=== PATIENT | female | born 1955 | race Caucasian/White ===

== ENCOUNTER → 2017-08-19 | Outpatient (CLI) | payer OTHER ==
[~2017-08-19] VITALS: Ht 167.6 cm; Wt 158.3 kg
[~2017-08-19] MED LIST: REGADENOSON 0.4 MG/5 ML PF SYG IVP SCH
== END | disposition home or self-care (01) ==
LOC: SHCH 08:13
PROVIDERS: ATTEND Internal Medicine Cardiovascular Disease
DX: I25.10 Atherosclerotic heart disease of native coronary artery without angina pectoris (principal)
CPT/HCPCS: 78452; 93017; 96374; A9500 ×2; J2785

== ENCOUNTER → 2020-05-02 | Outpatient (CLI) | payer OTHER | END | disposition home or self-care (01) | LOC: RAH 14:20 | PROVIDERS: ATTEND Physical Medicine & Rehabilitation | DX: M47.816 Spondylosis without myelopathy or radiculopathy, lumbar region (principal); M48.062 Spinal stenosis, lumbar region with neurogenic claudication | CPT/HCPCS: 72110 ==

== ENCOUNTER → 2020-06-23 | Outpatient (CLI) | payer OTHER | END | disposition home or self-care (01) | LOC: RAH 09:53 | PROVIDERS: ATTEND Physical Medicine & Rehabilitation | DX: M25.551 Pain in right hip (principal); M24.851 Other specific joint derangements of right hip, not elsewhere classified | CPT/HCPCS: 73502 ==

== ENCOUNTER 2020-08-10 15:48 | Emergency (ER) | payer OTHER ==
[~2020-08-10] VITALS: Ht 167.6 cm; Wt 162.8 kg
[2020-08-10 15:51] VITALS: BP 124/76
[2020-08-10] MEDS ORDERED: ZOSYN 3.375GM+NS 50ML 50 ML IV STA (16:10)
[2020-08-10] MEDS ORDERED: CLINDAMYCIN IVPB 600MG/50ML 50 ML IV STA (16:12)
[2020-08-10 18:02] LABS: BASOPHILS % (AUTO) 0.6 % (0.0-5.0); EOSINOPHILS % (AUTO) 2.1 % (0.0-8.0); MEAN CORPUSCULAR HEMOGLOBIN 30.1 pg (27.0-33.0); MEAN CORPUSCULAR HGB CONC 30.5 g/dL (32.0-36.0); MEAN CORPUSCULAR VOLUME 98.8 fL (79-99); MONOCYTES % (AUTO) 6.8 % (3.0-13.0); NEUTROPHILS % (AUTO) 66.3 % (40.0-77.0); PLATELET COUNT (AUTO) 331 K/uL (130-400); RED BLOOD CELL COUNT(AUTO) 4.25 MIL/uL (4.00-5.50); WHITE BLOOD COUNT (AUTO) 10.4 K/uL (4.8-10.8)
[2020-08-10 18:18] LABS: INR 1.06 (0.85-1.15); PROTHROMBIN TIME 11.5 SEC (9.6-11.6)
[2020-08-10 18:19] LABS: PARTIAL THROMBOPLASTIN TIME 27.5 SEC (26.3-35.5)
[2020-08-10] MEDS ORDERED: CLINDAMYCIN IVPB 600MG/50ML 50 ML IV ONE (18:20)
[2020-08-10] MEDS ORDERED: ZOSYN 3.375GM+NS 50ML 50 ML IV ONE (18:20)
[2020-08-10] MEDS ORDERED: 0.9% NACL 50ML 50 ML IV ONE (18:21)
[2020-08-10 18:22] LABS: CREATININE 1.4 mg/dL (0.5-1.5); POTASSIUM 4.5 mmol/L (3.5-5.1)
[2020-08-10 18:27] LABS: ALBUMIN 2.9 g/dL (3.5-5.0); BILIRUBIN,TOTAL 0.4 mg/dL (0.2-1.0); TOTAL PROTEIN, SERUM 8.3 g/dL (6.0-8.3); URIC ACID 10.5 mg/dL (2.6-7.2)
[2020-08-10] MEDS ORDERED: CLIN300C10 PO (18:53)
[2020-08-10 18:56] VITALS: BP 135/76
[2020-08-10 19:05] LABS: ERYTHROCYTE SEDIMENTATION RATE 90 MM/HR (0-30)
== END 2020-08-10 19:45 | disposition home or self-care (01) ==
LOC: EDH 15:48
DX: L03.115 Cellulitis of right lower limb (principal); E66.9 Obesity, unspecified; Z79.899 Other long term (current) drug therapy
CPT/HCPCS: 36415; 80053; 83605; 84550; 85025; 85610; 85651; 85730; 87040 ×2; 93971; 96365; 96367; 99284; J2543; J3490

== ENCOUNTER → 2020-08-14 | Outpatient (CLI) | payer OTHER ==
[~2020-08-14] MED LIST changes: +CLIN300C10 PO; +LIDOCAINE HCL 4% LTA SOL 4 ML VIAL TP ONE; -REGADENOSON 0.4 MG/5 ML PF SYG IVP SCH
== END | disposition home or self-care (01) ==
LOC: WHH 08:21
PROVIDERS: ATTEND Family Medicine
DX: I87.311 Chronic venous hypertension (idiopathic) with ulcer of right lower extremity (principal); E11.622 Type 2 diabetes mellitus with other skin ulcer; L97.812 Non-pressure chronic ulcer of other part of right lower leg with fat layer exposed; L97.212 Non-pressure chronic ulcer of right calf with fat layer exposed; I89.0 Lymphedema, not elsewhere classified; I10 Essential (primary) hypertension; E66.9 Obesity, unspecified; E78.5 Hyperlipidemia, unspecified; E03.9 Hypothyroidism, unspecified; G47.30 Sleep apnea, unspecified; I87.2 Venous insufficiency (chronic) (peripheral); E66.01 Morbid (severe) obesity due to excess calories; M10.9 Gout, unspecified; M48.00 Spinal stenosis, site unspecified; Z68.43 Body mass index [BMI] 50.0-59.9, adult
CPT/HCPCS: 99215; A4450; A6021; A6197

== ENCOUNTER → 2020-08-16 | Outpatient (CLI) | payer OTHER ==
[~2020-08-16] MED LIST changes: -LIDOCAINE HCL 4% LTA SOL 4 ML VIAL TP ONE
== END | disposition home or self-care (01) ==
LOC: WHH 11:19
PROVIDERS: ATTEND Family Medicine
DX: I87.311 Chronic venous hypertension (idiopathic) with ulcer of right lower extremity (principal); E11.622 Type 2 diabetes mellitus with other skin ulcer; L97.812 Non-pressure chronic ulcer of other part of right lower leg with fat layer exposed; L97.212 Non-pressure chronic ulcer of right calf with fat layer exposed; I89.0 Lymphedema, not elsewhere classified; I10 Essential (primary) hypertension; E66.9 Obesity, unspecified; E78.5 Hyperlipidemia, unspecified; E03.9 Hypothyroidism, unspecified; G47.30 Sleep apnea, unspecified; I87.2 Venous insufficiency (chronic) (peripheral); E66.01 Morbid (severe) obesity due to excess calories; M10.9 Gout, unspecified; Z68.43 Body mass index [BMI] 50.0-59.9, adult
CPT/HCPCS: 99211; A6021; A6197

== ENCOUNTER → 2020-08-18 | Outpatient (CLI) | payer OTHER | END | disposition home or self-care (01) | LOC: WHH 08:08 | PROVIDERS: ATTEND Family Medicine | DX: I87.311 Chronic venous hypertension (idiopathic) with ulcer of right lower extremity (principal); E11.622 Type 2 diabetes mellitus with other skin ulcer; L97.812 Non-pressure chronic ulcer of other part of right lower leg with fat layer exposed; L97.212 Non-pressure chronic ulcer of right calf with fat layer exposed; I89.0 Lymphedema, not elsewhere classified; I10 Essential (primary) hypertension; E66.9 Obesity, unspecified; E78.5 Hyperlipidemia, unspecified; E03.9 Hypothyroidism, unspecified; G47.30 Sleep apnea, unspecified; I87.2 Venous insufficiency (chronic) (peripheral); E66.01 Morbid (severe) obesity due to excess calories; M10.9 Gout, unspecified; Z68.43 Body mass index [BMI] 50.0-59.9, adult | CPT/HCPCS: 29580; 99211; A6021; A6197; A6456 ==

== ENCOUNTER → 2020-08-21 | Outpatient (CLI) | payer OTHER ==
[~2020-08-21] MED LIST changes: +LIDOCAINE HCL 4% LTA SOL 4 ML VIAL TP ONE
== END | disposition home or self-care (01) ==
LOC: WHH 08:09
PROVIDERS: ATTEND Family Medicine
DX: I87.311 Chronic venous hypertension (idiopathic) with ulcer of right lower extremity (principal); E11.622 Type 2 diabetes mellitus with other skin ulcer; L97.812 Non-pressure chronic ulcer of other part of right lower leg with fat layer exposed; L97.212 Non-pressure chronic ulcer of right calf with fat layer exposed; I89.0 Lymphedema, not elsewhere classified; I10 Essential (primary) hypertension; E66.9 Obesity, unspecified; E78.5 Hyperlipidemia, unspecified; E03.9 Hypothyroidism, unspecified; G47.30 Sleep apnea, unspecified; I87.2 Venous insufficiency (chronic) (peripheral); E66.01 Morbid (severe) obesity due to excess calories; M10.9 Gout, unspecified; Z68.43 Body mass index [BMI] 50.0-59.9, adult
CPT/HCPCS: 11042; A6021; A6197; A6456

== ENCOUNTER → 2020-08-23 | Outpatient (CLI) | payer OTHER ==
[~2020-08-23] MED LIST changes: -LIDOCAINE HCL 4% LTA SOL 4 ML VIAL TP ONE
== END | disposition home or self-care (01) ==
LOC: WHH 11:13
PROVIDERS: ATTEND Family Medicine
DX: I87.311 Chronic venous hypertension (idiopathic) with ulcer of right lower extremity (principal); E11.622 Type 2 diabetes mellitus with other skin ulcer; L97.812 Non-pressure chronic ulcer of other part of right lower leg with fat layer exposed; L97.212 Non-pressure chronic ulcer of right calf with fat layer exposed; I89.0 Lymphedema, not elsewhere classified; I10 Essential (primary) hypertension; E66.9 Obesity, unspecified; E78.5 Hyperlipidemia, unspecified; E03.9 Hypothyroidism, unspecified; G47.30 Sleep apnea, unspecified; I87.2 Venous insufficiency (chronic) (peripheral); E66.01 Morbid (severe) obesity due to excess calories; M10.9 Gout, unspecified; Z68.43 Body mass index [BMI] 50.0-59.9, adult
CPT/HCPCS: 29580; 99211; A6021; A6197; A6456

== ENCOUNTER → 2020-08-25 | Outpatient (CLI) | payer OTHER | END | disposition home or self-care (01) | LOC: WHH 08:12 | PROVIDERS: ATTEND Family Medicine | DX: I87.311 Chronic venous hypertension (idiopathic) with ulcer of right lower extremity (principal); E11.622 Type 2 diabetes mellitus with other skin ulcer; L97.812 Non-pressure chronic ulcer of other part of right lower leg with fat layer exposed; L97.212 Non-pressure chronic ulcer of right calf with fat layer exposed; I89.0 Lymphedema, not elsewhere classified; I10 Essential (primary) hypertension; E66.9 Obesity, unspecified; E78.5 Hyperlipidemia, unspecified; E03.9 Hypothyroidism, unspecified; G47.30 Sleep apnea, unspecified; I87.2 Venous insufficiency (chronic) (peripheral); E66.01 Morbid (severe) obesity due to excess calories; M10.9 Gout, unspecified; Z68.43 Body mass index [BMI] 50.0-59.9, adult | CPT/HCPCS: 99211; A6021; A6197 ==

== ENCOUNTER → 2020-08-29 | Outpatient (CLI) | payer MEDICARE, OTHER ==
[~2020-08-29] MED LIST changes: +LIDOCAINE HCL 4% LTA SOL 4 ML VIAL TP ONE
== END | disposition home or self-care (01) ==
LOC: WHH 08:06
PROVIDERS: ATTEND Family Medicine
DX: I87.311 Chronic venous hypertension (idiopathic) with ulcer of right lower extremity (principal); E11.622 Type 2 diabetes mellitus with other skin ulcer; L97.812 Non-pressure chronic ulcer of other part of right lower leg with fat layer exposed; L97.512 Non-pressure chronic ulcer of other part of right foot with fat layer exposed; L97.212 Non-pressure chronic ulcer of right calf with fat layer exposed; I89.0 Lymphedema, not elsewhere classified; I10 Essential (primary) hypertension; E66.9 Obesity, unspecified; E78.5 Hyperlipidemia, unspecified; E03.9 Hypothyroidism, unspecified; G47.30 Sleep apnea, unspecified; I87.2 Venous insufficiency (chronic) (peripheral); E66.01 Morbid (severe) obesity due to excess calories; M10.9 Gout, unspecified; Z68.43 Body mass index [BMI] 50.0-59.9, adult
CPT/HCPCS: 11042; A6021; A6197

== ENCOUNTER → 2020-09-01 | Outpatient (CLI) | payer MEDICARE, OTHER ==
[~2020-09-01] MED LIST changes: -LIDOCAINE HCL 4% LTA SOL 4 ML VIAL TP ONE
== END | disposition home or self-care (01) ==
LOC: WHH 08:14
PROVIDERS: ATTEND Family Medicine
DX: I87.311 Chronic venous hypertension (idiopathic) with ulcer of right lower extremity (principal); E11.622 Type 2 diabetes mellitus with other skin ulcer; L97.812 Non-pressure chronic ulcer of other part of right lower leg with fat layer exposed; L97.212 Non-pressure chronic ulcer of right calf with fat layer exposed; E11.621 Type 2 diabetes mellitus with foot ulcer; L97.512 Non-pressure chronic ulcer of other part of right foot with fat layer exposed; I89.0 Lymphedema, not elsewhere classified; I10 Essential (primary) hypertension; E66.9 Obesity, unspecified; E78.5 Hyperlipidemia, unspecified; E03.9 Hypothyroidism, unspecified; G47.30 Sleep apnea, unspecified; I87.2 Venous insufficiency (chronic) (peripheral); E66.01 Morbid (severe) obesity due to excess calories; M10.9 Gout, unspecified; Z68.43 Body mass index [BMI] 50.0-59.9, adult
CPT/HCPCS: 99211; A6021; A6197

== ENCOUNTER → 2020-09-04 | Outpatient (CLI) | payer MEDICARE, OTHER ==
[~2020-09-04] MED LIST changes: +LIDOCAINE HCL 4% LTA SOL 4 ML VIAL TP ONE
== END | disposition home or self-care (01) ==
LOC: WHH 08:11
PROVIDERS: ATTEND Family Medicine
DX: I87.311 Chronic venous hypertension (idiopathic) with ulcer of right lower extremity (principal); E11.622 Type 2 diabetes mellitus with other skin ulcer; L97.812 Non-pressure chronic ulcer of other part of right lower leg with fat layer exposed; L97.212 Non-pressure chronic ulcer of right calf with fat layer exposed; E11.621 Type 2 diabetes mellitus with foot ulcer; L97.518 Non-pressure chronic ulcer of other part of right foot with other specified severity; I89.0 Lymphedema, not elsewhere classified; I10 Essential (primary) hypertension; E66.9 Obesity, unspecified; E78.5 Hyperlipidemia, unspecified; E03.9 Hypothyroidism, unspecified; G47.30 Sleep apnea, unspecified; I87.2 Venous insufficiency (chronic) (peripheral); E66.01 Morbid (severe) obesity due to excess calories; M10.9 Gout, unspecified; Z68.43 Body mass index [BMI] 50.0-59.9, adult
CPT/HCPCS: 11042; A6021; A6197

== ENCOUNTER → 2020-09-08 | Outpatient (CLI) | payer OTHER ==
[~2020-09-08] MED LIST changes: -LIDOCAINE HCL 4% LTA SOL 4 ML VIAL TP ONE
== END | disposition home or self-care (01) ==
LOC: WHH 09:06
PROVIDERS: ATTEND Family Medicine
DX: I87.311 Chronic venous hypertension (idiopathic) with ulcer of right lower extremity (principal); E11.622 Type 2 diabetes mellitus with other skin ulcer; L97.812 Non-pressure chronic ulcer of other part of right lower leg with fat layer exposed; L97.212 Non-pressure chronic ulcer of right calf with fat layer exposed; I89.0 Lymphedema, not elsewhere classified; I10 Essential (primary) hypertension; E66.9 Obesity, unspecified; E78.5 Hyperlipidemia, unspecified; E03.9 Hypothyroidism, unspecified; G47.30 Sleep apnea, unspecified; I87.2 Venous insufficiency (chronic) (peripheral); E66.01 Morbid (severe) obesity due to excess calories; M10.9 Gout, unspecified; Z68.43 Body mass index [BMI] 50.0-59.9, adult
CPT/HCPCS: 99211; A6021; A6197

== ENCOUNTER → 2020-09-11 | Outpatient (CLI) | payer OTHER ==
[~2020-09-11] MED LIST changes: +LIDOCAINE HCL 4% LTA SOL 4 ML VIAL TP ONE
== END | disposition home or self-care (01) ==
LOC: WHH 08:16
PROVIDERS: ATTEND Family Medicine
DX: I87.311 Chronic venous hypertension (idiopathic) with ulcer of right lower extremity (principal); E11.622 Type 2 diabetes mellitus with other skin ulcer; L97.812 Non-pressure chronic ulcer of other part of right lower leg with fat layer exposed; L97.212 Non-pressure chronic ulcer of right calf with fat layer exposed; I89.0 Lymphedema, not elsewhere classified; I10 Essential (primary) hypertension; E66.9 Obesity, unspecified; E78.5 Hyperlipidemia, unspecified; E03.9 Hypothyroidism, unspecified; G47.30 Sleep apnea, unspecified; I87.2 Venous insufficiency (chronic) (peripheral); E66.01 Morbid (severe) obesity due to excess calories; M10.9 Gout, unspecified; Z68.43 Body mass index [BMI] 50.0-59.9, adult
CPT/HCPCS: 11042; A6021; A6197

== ENCOUNTER → 2020-09-14 | Outpatient (CLI) | payer OTHER ==
[~2020-09-14] MED LIST changes: -LIDOCAINE HCL 4% LTA SOL 4 ML VIAL TP ONE
== END | disposition home or self-care (01) ==
LOC: WHH 11:11
PROVIDERS: ATTEND Family Medicine
DX: I87.311 Chronic venous hypertension (idiopathic) with ulcer of right lower extremity (principal); E11.622 Type 2 diabetes mellitus with other skin ulcer; L97.812 Non-pressure chronic ulcer of other part of right lower leg with fat layer exposed; L97.212 Non-pressure chronic ulcer of right calf with fat layer exposed; I89.0 Lymphedema, not elsewhere classified; I10 Essential (primary) hypertension; E66.9 Obesity, unspecified; E78.5 Hyperlipidemia, unspecified; E03.9 Hypothyroidism, unspecified; G47.30 Sleep apnea, unspecified; I87.2 Venous insufficiency (chronic) (peripheral); E66.01 Morbid (severe) obesity due to excess calories; M10.9 Gout, unspecified; Z68.43 Body mass index [BMI] 50.0-59.9, adult
CPT/HCPCS: 99211; A4450; A6021; A6197

== ENCOUNTER → 2020-09-18 | Outpatient (CLI) | payer OTHER ==
[~2020-09-18] MED LIST changes: +LIDOCAINE HCL 4% LTA SOL 4 ML VIAL TP ONE
== END | disposition home or self-care (01) ==
LOC: WHH 08:08
PROVIDERS: ATTEND Family Medicine
DX: I87.311 Chronic venous hypertension (idiopathic) with ulcer of right lower extremity (principal); E11.622 Type 2 diabetes mellitus with other skin ulcer; L97.812 Non-pressure chronic ulcer of other part of right lower leg with fat layer exposed; L97.212 Non-pressure chronic ulcer of right calf with fat layer exposed; I89.0 Lymphedema, not elsewhere classified; I10 Essential (primary) hypertension; E66.9 Obesity, unspecified; E78.5 Hyperlipidemia, unspecified; E03.9 Hypothyroidism, unspecified; G47.30 Sleep apnea, unspecified; I87.2 Venous insufficiency (chronic) (peripheral); E66.01 Morbid (severe) obesity due to excess calories; M10.9 Gout, unspecified; Z68.43 Body mass index [BMI] 50.0-59.9, adult
CPT/HCPCS: 99214

== ENCOUNTER → 2020-09-25 | Outpatient (CLI) | payer OTHER ==
[~2020-09-25] MED LIST changes: -LIDOCAINE HCL 4% LTA SOL 4 ML VIAL TP ONE
== END | disposition home or self-care (01) ==
LOC: WHH 08:09
PROVIDERS: ATTEND Family Medicine
DX: I87.311 Chronic venous hypertension (idiopathic) with ulcer of right lower extremity (principal); E11.622 Type 2 diabetes mellitus with other skin ulcer; L97.812 Non-pressure chronic ulcer of other part of right lower leg with fat layer exposed; L97.212 Non-pressure chronic ulcer of right calf with fat layer exposed; I89.0 Lymphedema, not elsewhere classified; I10 Essential (primary) hypertension; E66.9 Obesity, unspecified; E78.5 Hyperlipidemia, unspecified; E03.9 Hypothyroidism, unspecified; G47.30 Sleep apnea, unspecified; I87.2 Venous insufficiency (chronic) (peripheral); E66.01 Morbid (severe) obesity due to excess calories; M10.9 Gout, unspecified; Z68.43 Body mass index [BMI] 50.0-59.9, adult
CPT/HCPCS: 99214

== ENCOUNTER → 2020-10-02 | Outpatient (CLI) | payer OTHER | END | disposition home or self-care (01) | LOC: WHH 08:08 | PROVIDERS: ATTEND Family Medicine | DX: I87.311 Chronic venous hypertension (idiopathic) with ulcer of right lower extremity (principal); E11.622 Type 2 diabetes mellitus with other skin ulcer; L97.812 Non-pressure chronic ulcer of other part of right lower leg with fat layer exposed; L97.212 Non-pressure chronic ulcer of right calf with fat layer exposed; I89.0 Lymphedema, not elsewhere classified; I10 Essential (primary) hypertension; E66.9 Obesity, unspecified; E78.5 Hyperlipidemia, unspecified; E03.9 Hypothyroidism, unspecified; G47.30 Sleep apnea, unspecified; I87.2 Venous insufficiency (chronic) (peripheral); E66.01 Morbid (severe) obesity due to excess calories; M10.9 Gout, unspecified; Z68.43 Body mass index [BMI] 50.0-59.9, adult | CPT/HCPCS: 11042; A6021; A6197 ==

== ENCOUNTER → 2020-10-09 | Outpatient (CLI) | payer MEDICARE, OTHER ==
[~2020-10-09] MED LIST changes: +LIDOCAINE HCL 4% LTA SOL 4 ML VIAL TP ONE
== END | disposition home or self-care (01) ==
LOC: WHH 08:40
PROVIDERS: ATTEND Family Medicine
DX: I87.311 Chronic venous hypertension (idiopathic) with ulcer of right lower extremity (principal); E11.622 Type 2 diabetes mellitus with other skin ulcer; L97.812 Non-pressure chronic ulcer of other part of right lower leg with fat layer exposed; L97.212 Non-pressure chronic ulcer of right calf with fat layer exposed; I89.0 Lymphedema, not elsewhere classified; I10 Essential (primary) hypertension; E66.9 Obesity, unspecified; E78.5 Hyperlipidemia, unspecified; E03.9 Hypothyroidism, unspecified; G47.30 Sleep apnea, unspecified; I87.2 Venous insufficiency (chronic) (peripheral); E66.01 Morbid (severe) obesity due to excess calories; M10.9 Gout, unspecified; Z68.43 Body mass index [BMI] 50.0-59.9, adult
CPT/HCPCS: 99214; A6021; A6196

== ENCOUNTER 2020-10-16 08:02 | Outpatient (CLI) | payer OTHER ==
[~2020-10-16 08:02] MED LIST changes: -LIDOCAINE HCL 4% LTA SOL 4 ML VIAL TP ONE
== END 2020-10-16 14:05 | disposition home or self-care (01) ==
LOC: WHH 08:02
PROVIDERS: ATTEND Family Medicine
DX: I87.311 Chronic venous hypertension (idiopathic) with ulcer of right lower extremity (principal); E11.622 Type 2 diabetes mellitus with other skin ulcer; L97.812 Non-pressure chronic ulcer of other part of right lower leg with fat layer exposed; L97.212 Non-pressure chronic ulcer of right calf with fat layer exposed; I89.0 Lymphedema, not elsewhere classified; I10 Essential (primary) hypertension; E66.9 Obesity, unspecified; E78.5 Hyperlipidemia, unspecified; E03.9 Hypothyroidism, unspecified; G47.30 Sleep apnea, unspecified; I87.2 Venous insufficiency (chronic) (peripheral); E66.01 Morbid (severe) obesity due to excess calories; M10.9 Gout, unspecified; Z68.43 Body mass index [BMI] 50.0-59.9, adult
CPT/HCPCS: 99214

== ENCOUNTER 2020-10-29 10:47 | Emergency (ER) | payer OTHER ==
[~2020-10-29] VITALS: Ht 167.6 cm; Wt 158.8 kg
[2020-10-29 11:07] VITALS: BP 126/75
[2020-10-29 11:32] LABS: BASOPHILS % (AUTO) 0.5 % (0.0-5.0); EOSINOPHILS % (AUTO) 1.8 % (0.0-8.0); HEMATOCRIT 40.5 % (36-48); LYMPHOCYTES % (AUTO) 11.3 % (21.0-51.0); MEAN CORPUSCULAR HEMOGLOBIN 29.9 pg (27.0-33.0); MEAN CORPUSCULAR HGB CONC 30.9 g/dL (32.0-36.0); MEAN CORPUSCULAR VOLUME 96.9 fL (79-99); MONOCYTES % (AUTO) 5.5 % (3.0-13.0); NEUTROPHILS % (AUTO) 80.2 % (40.0-77.0); PLATELET COUNT (AUTO) 204 K/uL (130-400); RED BLOOD CELL COUNT(AUTO) 4.18 MIL/uL (4.00-5.50); RED CELL DISTRIBUTION WIDTH 13.8 % (11.0-15.5); WHITE BLOOD COUNT (AUTO) 10.5 K/uL (4.8-10.8)
[2020-10-29 11:39] LABS: CREATININE 1.4 mg/dL (0.5-1.5); POTASSIUM 4.4 mmol/L (3.5-5.1)
[2020-10-29 11:44] LABS: ALBUMIN 3.2 g/dL (3.5-5.0); BILIRUBIN,TOTAL 0.4 mg/dL (0.2-1.0); TOTAL PROTEIN, SERUM 8.3 g/dL (6.0-8.3); URIC ACID 9.4 mg/dL (2.6-7.2)
[2020-10-29 11:57] VITALS: BP 134/75
[2020-10-29] MEDS ORDERED: CLINDAMYCIN IVPB 600MG/50ML 50 ML IV SCH (12:30)
[2020-10-29] MEDS ORDERED: CEFTRIAXONE 1G VIAL IVP ONE (12:30)
[2020-10-29] MEDS ORDERED: CEFTRIAXONE 1G VIAL ONE (13:53)
[2020-10-29] MEDS ORDERED: CLIN300C10 PO (15:09)
[2020-10-29] MEDS ORDERED: NAPR-1180 PO (15:09)
[2020-10-29 15:27] VITALS: BP 133/72
== END 2020-10-29 15:53 | disposition home or self-care (01) ==
LOC: EDH 10:47
DX: L03.115 Cellulitis of right lower limb (principal); E11.65 Type 2 diabetes mellitus with hyperglycemia
CPT/HCPCS: 36415; 73600; 80053; 83605; 84550; 85025; 96365; 96366; 96375; 99284; J0696; J3490

== ENCOUNTER → 2020-12-11 | Outpatient (CLI) | payer OTHER ==
[~2020-12-11] MED LIST changes: +CLIN-141 PO; -CLIN300C10 PO; +NAPR-1180 PO
== END | disposition home or self-care (01) ==
LOC: SHCH 09:46
PROVIDERS: ATTEND Internal Medicine Cardiovascular Disease
DX: I87.2 Venous insufficiency (chronic) (peripheral) (principal)
CPT/HCPCS: 93971

== ENCOUNTER → 2021-10-10 | Outpatient (CLI) | payer OTHER | END | disposition home or self-care (01) | LOC: RAH 09:09 | PROVIDERS: ATTEND Physician Assistant | DX: M25.551 Pain in right hip (principal); M16.0 Bilateral primary osteoarthritis of hip; M16.11 Unilateral primary osteoarthritis, right hip; M25.852 Other specified joint disorders, left hip; M25.851 Other specified joint disorders, right hip | CPT/HCPCS: 73522 ==

== ENCOUNTER → 2023-09-03 | Outpatient (CLI) | payer BC | END | disposition home or self-care (01) | LOC: RAH 10:42 | PROVIDERS: ATTEND Pain Medicine Interventional Pain Medicine | DX: M47.26 Other spondylosis with radiculopathy, lumbar region (principal); M48.07 Spinal stenosis, lumbosacral region | CPT/HCPCS: 72100 ==

== ENCOUNTER → 2023-11-14 | Outpatient (CLI) | payer BC | END | disposition home or self-care (01) | LOC: RAH 10:06 | PROVIDERS: ATTEND Pain Medicine Interventional Pain Medicine | DX: M16.11 Unilateral primary osteoarthritis, right hip (principal); M25.551 Pain in right hip; M25.552 Pain in left hip | CPT/HCPCS: 73521 ==

== ENCOUNTER → 2023-12-18 | Outpatient (CLI) | payer BC | END | disposition home or self-care (01) | LOC: WHH 09:03 | PROVIDERS: ATTEND Family Medicine | DX: S81.801A Unspecified open wound, right lower leg, initial encounter (principal); I89.0 Lymphedema, not elsewhere classified; I10 Essential (primary) hypertension; E78.5 Hyperlipidemia, unspecified; E66.01 Morbid (severe) obesity due to excess calories; M48.00 Spinal stenosis, site unspecified; Z68.43 Body mass index [BMI] 50.0-59.9, adult; W22.8XXA Striking against or struck by other objects, initial encounter; Y93.89 Activity, other specified; Y92.89 Other specified places as the place of occurrence of the external cause; Y99.8 Other external cause status | CPT/HCPCS: 99214; A6212 ==

== ENCOUNTER → 2023-12-25 | Outpatient (CLI) | payer BC ==
[~2023-12-25] MED LIST changes: +LIDOCAINE HCL 4% LTA SOL 4 ML VIAL TP ONE
== END | disposition home or self-care (01) ==
LOC: WHH 08:25
PROVIDERS: ATTEND Family Medicine
DX: S81.801D Unspecified open wound, right lower leg, subsequent encounter (principal); I89.0 Lymphedema, not elsewhere classified; I10 Essential (primary) hypertension; E78.5 Hyperlipidemia, unspecified; E66.01 Morbid (severe) obesity due to excess calories; M48.00 Spinal stenosis, site unspecified; M10.9 Gout, unspecified; Z68.43 Body mass index [BMI] 50.0-59.9, adult; W22.8XXD Striking against or struck by other objects, subsequent encounter
CPT/HCPCS: 99214; A6212

== ENCOUNTER → 2024-01-08 | Outpatient (CLI) | payer BC | END | disposition home or self-care (01) | LOC: WHH 08:23 | PROVIDERS: ATTEND Family Medicine | DX: S81.801D Unspecified open wound, right lower leg, subsequent encounter (principal); I89.0 Lymphedema, not elsewhere classified; I10 Essential (primary) hypertension; E66.01 Morbid (severe) obesity due to excess calories; E78.5 Hyperlipidemia, unspecified; M48.00 Spinal stenosis, site unspecified; M10.9 Gout, unspecified; M16.11 Unilateral primary osteoarthritis, right hip; Z68.43 Body mass index [BMI] 50.0-59.9, adult; W22.8XXD Striking against or struck by other objects, subsequent encounter | CPT/HCPCS: 99214; A6212 ==

== ENCOUNTER → 2024-01-29 | Outpatient (CLI) | payer OTHER | END | disposition home or self-care (01) | LOC: WHH 09:14 | PROVIDERS: ATTEND Family Medicine | DX: S81.801D Unspecified open wound, right lower leg, subsequent encounter (principal); I89.0 Lymphedema, not elsewhere classified; I10 Essential (primary) hypertension; E78.5 Hyperlipidemia, unspecified; E66.01 Morbid (severe) obesity due to excess calories; M48.00 Spinal stenosis, site unspecified; M10.9 Gout, unspecified; M16.11 Unilateral primary osteoarthritis, right hip; Z68.43 Body mass index [BMI] 50.0-59.9, adult; W22.8XXD Striking against or struck by other objects, subsequent encounter | CPT/HCPCS: 99214; A6212 ==

== ENCOUNTER → 2024-05-25 | Outpatient (CLI) | payer OTHER | END | disposition home or self-care (01) | LOC: SHCH 12:56 | PROVIDERS: ATTEND Internal Medicine Cardiovascular Disease | DX: I08.0 Rheumatic disorders of both mitral and aortic valves (principal); R06.09 Other forms of dyspnea; R94.31 Abnormal electrocardiogram [ECG] [EKG] | CPT/HCPCS: 93306 ==

== ENCOUNTER → 2024-06-08 | Outpatient (CLI) | payer OTHER ==
[~2024-06-08] MED LIST changes: -CLIN-141 PO; -NAPR-1180 PO
== END | disposition home or self-care (01) ==
LOC: WHH 08:06
PROVIDERS: ATTEND Family Medicine
DX: S81.802A Unspecified open wound, left lower leg, initial encounter (principal); E11.9 Type 2 diabetes mellitus without complications; I89.0 Lymphedema, not elsewhere classified; I10 Essential (primary) hypertension; E78.5 Hyperlipidemia, unspecified; E66.9 Obesity, unspecified; M48.00 Spinal stenosis, site unspecified; W22.8XXA Striking against or struck by other objects, initial encounter; Y93.89 Activity, other specified; Y92.89 Other specified places as the place of occurrence of the external cause; Y99.8 Other external cause status
CPT/HCPCS: 99215; A6212

== ENCOUNTER → 2024-06-15 | Outpatient (CLI) | payer OTHER | END | disposition home or self-care (01) | LOC: WHH 08:05 | PROVIDERS: ATTEND Family Medicine | DX: S81.802D Unspecified open wound, left lower leg, subsequent encounter (principal); E11.9 Type 2 diabetes mellitus without complications; I89.0 Lymphedema, not elsewhere classified; I10 Essential (primary) hypertension; E78.5 Hyperlipidemia, unspecified; E66.9 Obesity, unspecified; M10.9 Gout, unspecified; M48.00 Spinal stenosis, site unspecified; Z68.43 Body mass index [BMI] 50.0-59.9, adult; W22.8XXD Striking against or struck by other objects, subsequent encounter | CPT/HCPCS: 11042; A6212; A6010 ==

== ENCOUNTER → 2024-06-22 | Outpatient (CLI) | payer OTHER | END | disposition home or self-care (01) | LOC: WHH 08:04 | PROVIDERS: ATTEND Family Medicine | DX: S81.802D Unspecified open wound, left lower leg, subsequent encounter (principal); E11.9 Type 2 diabetes mellitus without complications; I89.0 Lymphedema, not elsewhere classified; I10 Essential (primary) hypertension; E78.5 Hyperlipidemia, unspecified; E66.9 Obesity, unspecified; I25.10 Atherosclerotic heart disease of native coronary artery without angina pectoris; M10.9 Gout, unspecified; M48.00 Spinal stenosis, site unspecified; Z68.43 Body mass index [BMI] 50.0-59.9, adult; W22.8XXD Striking against or struck by other objects, subsequent encounter | CPT/HCPCS: 99214; A6212 ==

== ENCOUNTER → 2024-06-29 | Outpatient (CLI) | payer OTHER | END | disposition home or self-care (01) | LOC: WHH 07:55 | PROVIDERS: ATTEND Family Medicine | DX: S81.802D Unspecified open wound, left lower leg, subsequent encounter (principal); E11.9 Type 2 diabetes mellitus without complications; I89.0 Lymphedema, not elsewhere classified; I10 Essential (primary) hypertension; E78.5 Hyperlipidemia, unspecified; E66.9 Obesity, unspecified; I25.10 Atherosclerotic heart disease of native coronary artery without angina pectoris; M10.9 Gout, unspecified; M48.00 Spinal stenosis, site unspecified; Z68.43 Body mass index [BMI] 50.0-59.9, adult; W22.8XXD Striking against or struck by other objects, subsequent encounter | CPT/HCPCS: 11042; A6212 ==

== ENCOUNTER → 2024-07-13 | Outpatient (CLI) | payer OTHER ==
[~2024-07-13] MED LIST changes: +ALLO100T PO; +AMLO2.5T4 PO; +ASPI-1443 PO; +BIOT5000 PO; +CHOL500051 PO; +HYDR4 PO; +LEVO200T10 PO; +METF-444 PO; +MVI PO; +SIMV-46 PO
== END ==
LOC: WHH 08:04
PROVIDERS: ATTEND Family Medicine
DX: S81.802D Unspecified open wound, left lower leg, subsequent encounter (principal); L03.115 Cellulitis of right lower limb; E11.9 Type 2 diabetes mellitus without complications; I89.0 Lymphedema, not elsewhere classified; I10 Essential (primary) hypertension; E78.5 Hyperlipidemia, unspecified; E66.9 Obesity, unspecified; I25.10 Atherosclerotic heart disease of native coronary artery without angina pectoris; M10.9 Gout, unspecified; M48.00 Spinal stenosis, site unspecified; Z68.43 Body mass index [BMI] 50.0-59.9, adult; W22.8XXD Striking against or struck by other objects, subsequent encounter
CPT/HCPCS: 11042; A6212

== ENCOUNTER → 2024-07-20 | Outpatient (CLI) | payer OTHER | END | disposition home or self-care (01) | LOC: WHH 08:19 | PROVIDERS: ATTEND Family Medicine | DX: S81.802D Unspecified open wound, left lower leg, subsequent encounter (principal); L03.115 Cellulitis of right lower limb; E11.9 Type 2 diabetes mellitus without complications; I10 Essential (primary) hypertension; I89.0 Lymphedema, not elsewhere classified; E78.5 Hyperlipidemia, unspecified; E66.9 Obesity, unspecified; I25.10 Atherosclerotic heart disease of native coronary artery without angina pectoris; M10.9 Gout, unspecified; M48.00 Spinal stenosis, site unspecified; Z68.43 Body mass index [BMI] 50.0-59.9, adult; W22.8XXD Striking against or struck by other objects, subsequent encounter | CPT/HCPCS: 11042; A6212 ==

== ENCOUNTER 2024-07-21 06:01 | Day surgery (SDC) | payer OTHER ==
[2024-07-07 14:53] LABS: BASOPHILS # (AUTO) 0.04 K/uL (0.00-0.20); BASOPHILS % (AUTO) 0.5 % (0.0-5.0); EOSINOPHILS % (AUTO) 2.3 % (0.0-8.0); HEMATOCRIT 39.1 % (36-48); IMMATURE GRANULOCYTE ABSOLUTE 0.03 K/uL (0-1); LYMPHOCYTES # (AUTO) 2.2 K/uL (1.0-4.8); MEAN CORPUSCULAR HEMOGLOBIN 31.3 pg (27.0-33.0); MEAN CORPUSCULAR HGB CONC 32.5 g/dL (32.0-36.0); MEAN CORPUSCULAR VOLUME 96.3 fL (79-99); MONOCYTES # (AUTO) 0.7 K/uL (0.1-1.0); MONOCYTES % (AUTO) 7.5 % (3.0-13.0); NEUTROPHILS # (AUTO) 5.6 K/uL (1.8-7.7); NEUTROPHILS % (AUTO) 64.4 % (40.0-77.0); PLATELET COUNT (AUTO) 233 K/uL (130-400); RED BLOOD CELL COUNT(AUTO) 4.06 MIL/uL (4.00-5.50); RED CELL DISTRIBUTION WIDTH 14.3 % (11.0-15.5); WHITE BLOOD COUNT (AUTO) 8.6 K/uL (4.8-10.8)
--- NOTE | 2024-07-07 14:55 | EKG ---
[facility] Test Date: 2024-07-07 Test Time: 14:41:56 Pat Name: AFSHIN BAEZ Department: [facility] Room: Gender: F Balance Weigher: [id number] : 1955 Requested By: CAREY AVITIA Order Number: [id number] Reading MD: Lamin Gorman Measurements Intervals [place] Rate: 79 P: 35 WA: 184 QRS: 23 QRSD: 88 T: 38 QT: 376 QTc: 431 Interpretive Statements Sinus rhythm Low voltage, precordial leads No previous ECG available for comparison Electronically Signed On 07-07-2024 18:59:42 CDT by Lamin Gorman Please click the below link to view image of tracing.
[2024-07-07 15:01] LABS: CREATININE 1.2 mg/dL (0.5-1.0); POTASSIUM 4.6 mmol/L (3.5-5.1)
[2024-07-07 15:06] LABS: INR 0.96 (0.85-1.15); PROTHROMBIN TIME 10.2 SEC (9.6-11.6)
[2024-07-07 15:07] LABS: PARTIAL THROMBOPLASTIN TIME 30.8 SEC (26.3-35.5)
[2024-07-07 15:11] VITALS: BP 180/71; PULSE 81; RESP 15; TEMP 97.9
--- NOTE | 2024-07-07 16:03 | HMCIMG ---
Exam Type: CHEST 1VW Clinical Information: PRE OP Comparison: None Findings: The lungs are clear. The heart is normal in size. There is tortuosity of the aorta which artifactually enlarges the mediastinum. No actual mediastinal pathology is detected. IMPRESSION: Tortuous aorta. Clear lungs.
[2024-07-21] VITALS (10 sets, daily range): BP systolic 110–163; BP diastolic 68–82; PULSE 65–78; RESP 12–19; TEMP 97.2–98.6
[~2024-07-21] VITALS: Ht 162.6 cm; Wt 142.1 kg
[~2024-07-21 06:01] MED LIST changes: -LIDOCAINE HCL 4% LTA SOL 4 ML VIAL TP ONE
[2024-07-21] MEDS ORDERED: IOHEXOL 350 MG/ML 100ML INFUS..BTL IV ONE (07:13)
[2024-07-21] MEDS ORDERED: VERAPAMIL HCL 2.5 MG/ML VIAL ONE (07:13)
[2024-07-21] MEDS ORDERED: HEParin-NS 1,000 UNIT/500 ML 1,000 ML IV ONE (07:13)
[2024-07-21] MEDS ORDERED: LIDOCAINE HCL 400MG/20ML VIAL ONE (07:13)
[2024-07-21] MEDS ORDERED: HEParin 10,000 UNIT/10ML (1,000 UNIT/ML) VIAL ONE (07:13)
[2024-07-21] MEDS ORDERED: NITROGLYCERIN 50MG VIAL ONE (07:14)
[2024-07-21] MEDS ORDERED: niCARDIpine 25MG INJ IV ONE (07:15)
[2024-07-21] MEDS ORDERED: MIDAZOLAM HCL 1 MG/ML 2ML VIAL ONE (07:26)
[2024-07-21] MEDS ORDERED: FENTanyl CITRate PF 50 MCG/1 ML 2ML VIAL ONE (07:26)
[2024-07-21] MEDS ORDERED: BIVALIRUDIN 250 MG/VIAL IV ONE (07:36)
[2024-07-21] MEDS ORDERED: IOHEXOL-350 50ML VIAL IV ONE (07:56)
--- NOTE | 2024-07-21 08:15 | PRN ---
Left Heart Cath-Tubbs PROCEDURE: 1. Right radial arterial sheath placement. 2. Selective coronary angiogram. 3. Left heart catheterization. 4. Left ventriculogram. INDICATIONS: Abnormal stress test Abnormal coronary CT angiography DESCRIPTION OF PROCEDURE: The patient was brought to the catheterization suite and prepped and draped in sterile fashion. An IV was started, if not already in place and both groins were exposed for arterial access. Patient's right radial region was also exposed for arterial access from a right radial artery approach. 1% lidocaine was used for local anesthesia and then a micropuncture kit was used to gain access and once free-flowing blood was seen, modified Seldinger technique was utilized to place a 6 Romanian sheath into the right radial artery. Next, preformed TIG 4 Catheters was then used to selectively engage the [place] coronary vessels and multiple hand contrast injections were performed in different views to define the coronary anatomy. Next, a 6 Romanian angled pigtail catheter was used to cross the aortic valve. Pressure measurements were obtained in the left ventriculogram was in the 30 OJEDA position. Next, pullback method was performed. At the end of the case, sheath was pulled with the use of a TR band. No complications occurred. FINDINGS: The left main artery bifurcates in the LAD and left circumflex and is free of any stenosis. The left anterior descending artery has no significant stenosis present. Mid LAD has nonobstructive plaque noted. Diagonal branch system is free of any significant disease. The left circumflex artery is a large vessel with a prominent obtuse marginal branch system all of which are free of any significant disease. The right coronary artery is a dominant system giving rise to the RPDA and RPL and is free of any significant stenosis. RPDA and RPL are free of any significant disease. Ejection fraction is greater than 65% Resting wall motion is normal No evidence of aortic stenosis or mitral regurgitation LVEDP is elevated RECOMMENDATIONS: Continue home medical management Consider patient low to intermediate risk for noncardiac surgery There are no relative or absolute contraindications exist from a cardiac standpoint to preclude patient from from proceeding with noncardiac surgery Follow up in 2-4 weeks CAREY TUBBS MD July 21, 2024 08:15
[2024-07-21] MEDS ORDERED: DEXTROSE 50%-WATER 50 ML DISP.SYRIN IV PRN (08:30)
[2024-07-21] MEDS ORDERED: GLUCAGON 1MG KIT 1 MG ML IM PRN (08:30)
--- NOTE | 2024-07-21 11:00 | NUR ---
VasBand removed at this time. site is clean dry and intact. no bleeding noted to site. Site dressed with sterile 2x2 guaze and tegaderm dressing.
[2024-07-21] MEDS ORDERED: INSULIN humuLIN R 100 UNIT/ML 3ML SQ SCH (11:30)
== END 2024-07-21 11:30 | disposition home or self-care (01) ==
LOC: DAH 06:01
PROVIDERS: ATTEND Internal Medicine Cardiovascular Disease
DX: R94.39 Abnormal result of other cardiovascular function study (principal); I25.118 Atherosclerotic heart disease of native coronary artery with other forms of angina pectoris; E78.5 Hyperlipidemia, unspecified; I11.0 Hypertensive heart disease with heart failure; I50.32 Chronic diastolic (congestive) heart failure; E11.9 Type 2 diabetes mellitus without complications; E03.9 Hypothyroidism, unspecified; I87.1 Compression of vein; I87.2 Venous insufficiency (chronic) (peripheral); R93.1 Abnormal findings on diagnostic imaging of heart and coronary circulation; E66.01 Morbid (severe) obesity due to excess calories; Z98.891 History of uterine scar from previous surgery; Z68.43 Body mass index [BMI] 50.0-59.9, adult; Z79.899 Other long term (current) drug therapy; Z79.890 Hormone replacement therapy; Z79.82 Long term (current) use of aspirin; Z79.84 Long term (current) use of oral hypoglycemic drugs; Z79.01 Long term (current) use of anticoagulants
CPT/HCPCS: 80048; 85025; 85610; 85730; 36415; 71045; 93005; 93458; 82948; Q9965; C1769 ×2; C1894; A4649; J3010; J3490 ×3; J1644 ×2; J2250; Q9967; A4215; A4222; A4221; A4663; A4216; A4606; A4223 ×3; 99156; 99157; J0583

== ENCOUNTER → 2024-07-27 | Outpatient (CLI) | payer OTHER ==
[~2024-07-27] MED LIST changes: +LIDOCAINE HCL 4% LTA SOL 4 ML VIAL TP ONE
== END | disposition home or self-care (01) ==
LOC: WHH 08:13
PROVIDERS: ATTEND Family Medicine
DX: S81.802D Unspecified open wound, left lower leg, subsequent encounter (principal); L03.115 Cellulitis of right lower limb; E11.9 Type 2 diabetes mellitus without complications; I10 Essential (primary) hypertension; I89.0 Lymphedema, not elsewhere classified; E78.5 Hyperlipidemia, unspecified; E66.9 Obesity, unspecified; I25.10 Atherosclerotic heart disease of native coronary artery without angina pectoris; M10.9 Gout, unspecified; M48.00 Spinal stenosis, site unspecified; Z68.43 Body mass index [BMI] 50.0-59.9, adult; W22.8XXD Striking against or struck by other objects, subsequent encounter
CPT/HCPCS: 11042; A6212

== ENCOUNTER → 2024-08-03 | Outpatient (CLI) | payer OTHER | END | disposition home or self-care (01) | LOC: WHH 08:05 | PROVIDERS: ATTEND Family Medicine | DX: S81.802D Unspecified open wound, left lower leg, subsequent encounter (principal); I89.0 Lymphedema, not elsewhere classified; E11.9 Type 2 diabetes mellitus without complications; I10 Essential (primary) hypertension; E78.5 Hyperlipidemia, unspecified; I25.10 Atherosclerotic heart disease of native coronary artery without angina pectoris; M10.9 Gout, unspecified; M48.00 Spinal stenosis, site unspecified; E66.9 Obesity, unspecified; Z68.43 Body mass index [BMI] 50.0-59.9, adult; W22.8XXD Striking against or struck by other objects, subsequent encounter | CPT/HCPCS: 99214; A6212 ==

== ENCOUNTER → 2024-08-04 | Outpatient (CLI) | payer OTHER ==
[~2024-08-04] MED LIST changes: -LIDOCAINE HCL 4% LTA SOL 4 ML VIAL TP ONE
--- NOTE | 2024-08-04 09:45 | HMCIMG ---
Exam Type: SHOULDER COMP 2+VWS RT Clinical Information: PAIN IN RIGHT SHOULDER Comparison: None FINDINGS: There are severe degenerative changes of the glenohumeral joint with joint space narrowing, subchondral sclerosis, and marginal osteophytosis. The acromiohumeral space is preserved. The acromioclavicular joint is not hypertrophic. No fractures or dislocations are seen. The visualized portion of the right upper lung is clear. Impression: Severe degenerative changes as noted. No acute pathology. No fractures.
== END | disposition home or self-care (01) ==
LOC: LAB 08:41
PROVIDERS: ATTEND Physician Assistant
DX: M19.011 Primary osteoarthritis, right shoulder (principal); M25.811 Other specified joint disorders, right shoulder; M25.711 Osteophyte, right shoulder; M25.511 Pain in right shoulder
CPT/HCPCS: 73030

== ENCOUNTER → 2024-08-10 | Outpatient (CLI) | payer OTHER ==
[~2024-08-10] MED LIST changes: +LIDOCAINE HCL 4% LTA SOL 4 ML VIAL TP ONE
== END | disposition home or self-care (01) ==
LOC: WHH 08:02
PROVIDERS: ATTEND Family Medicine
DX: S81.802D Unspecified open wound, left lower leg, subsequent encounter (principal); I89.0 Lymphedema, not elsewhere classified; E11.9 Type 2 diabetes mellitus without complications; I10 Essential (primary) hypertension; E78.5 Hyperlipidemia, unspecified; E66.9 Obesity, unspecified; I25.10 Atherosclerotic heart disease of native coronary artery without angina pectoris; M10.9 Gout, unspecified; M48.00 Spinal stenosis, site unspecified; Z68.43 Body mass index [BMI] 50.0-59.9, adult; W22.8XXD Striking against or struck by other objects, subsequent encounter
CPT/HCPCS: 99214; A6212

== ENCOUNTER → 2024-08-17 | Outpatient (CLI) | payer OTHER | END | disposition home or self-care (01) | LOC: WHH 08:11 | PROVIDERS: ATTEND Family Medicine | DX: S81.802D Unspecified open wound, left lower leg, subsequent encounter (principal); I89.0 Lymphedema, not elsewhere classified; E11.9 Type 2 diabetes mellitus without complications; I10 Essential (primary) hypertension; E78.5 Hyperlipidemia, unspecified; E66.9 Obesity, unspecified; I25.10 Atherosclerotic heart disease of native coronary artery without angina pectoris; M10.9 Gout, unspecified; M48.00 Spinal stenosis, site unspecified; Z68.43 Body mass index [BMI] 50.0-59.9, adult; W22.8XXD Striking against or struck by other objects, subsequent encounter | CPT/HCPCS: 99214; A6212; A6010 ==

== ENCOUNTER → 2024-08-31 | Outpatient (CLI) | payer OTHER ==
[~2024-08-31] MED LIST changes: -LIDOCAINE HCL 4% LTA SOL 4 ML VIAL TP ONE
== END | disposition home or self-care (01) ==
LOC: WHH 08:03
PROVIDERS: ATTEND Family Medicine
DX: S81.802D Unspecified open wound, left lower leg, subsequent encounter (principal); I89.0 Lymphedema, not elsewhere classified; E11.9 Type 2 diabetes mellitus without complications; I10 Essential (primary) hypertension; E78.5 Hyperlipidemia, unspecified; E66.9 Obesity, unspecified; I25.10 Atherosclerotic heart disease of native coronary artery without angina pectoris; M10.9 Gout, unspecified; M48.00 Spinal stenosis, site unspecified; Z68.43 Body mass index [BMI] 50.0-59.9, adult; W22.8XXD Striking against or struck by other objects, subsequent encounter
CPT/HCPCS: 99214